=== PATIENT | male | born 1955 | race Caucasian/White ===

== ENCOUNTER 2016-12-22 01:54 | Inpatient (IN) | payer OTHER ==
--- NOTE | ~2016-12-22 | CO ---
Unit #: [id number] #: [id number] Patient: CINTHIA BENSON [id number] [facility] [address] [place] [address] [id number] MR#: [id number] NAME: CINTHIA BENSON. ROOM: [facility] Age: 61 Sex: M Admission Date: 12/22/2016 : 1955 Attending Physician: Suresh Khoury M.D. Primary Care Physician: Sonya Merino M.D. Consultation Date: 12/22/2016 CONSULTATION REPORT RITA Kirk is a 61-year-old with diabetes mellitus. He is admitted on no diabetic medications. We have been asked to assess and give recommendations. He has been on Glucophage 500 mg p.o. b.i.d. in the past; however, at time of admission creatinine was 1.8. PLAN Plan will be to start him on Levemir 15 units subcu q.h.s. Monitor Accu-Cheks a.c. and h.s. and provide sliding scale. Dictated by... Tana Gamble P.A.-C. for Shasta Norwood/elzbieta TD: 12/24/2016 02:15 JOB #: [id number] CONSULTATION REPORT Page 1 of 1 X Tana Gamble CONSULTATION REPORT
--- NOTE | ~2016-12-22 | HP ---
Unit #: [id number] #: [id number] Patient: REAGAN BENSON [id number] [facility] [address] [place] [address] [id number] MR#: [id number] NAME: REAGAN BENSON. ROOM: [facility] Age: 61 Sex: M Admission Date: 12/22/2016 : 1955 Attending Physician: Suresh Khoury M.D. Admitting Physician: Suresh Khoury M.D. Primary Care Physician: Sonya Merino M.D. HISTORY AND PHYSICAL HISTORY OF PRESENT ILLNESS Reagan is a 61 year old, admitted to [address] [place] [address], because of his continued abuse of alcohol. He is detoxing. PAST MEDICAL HISTORY 1. Long history of alcohol abuse. 2. Diabetes mellitus. 3. Peripheral neuropathy. PAST SURGICAL HISTORY Nothing reported. ALLERGIES No known drug allergies. SOCIAL HISTORY He does not smoke, drinks up to a case of beer on a daily basis and he has a history of heroin use. FAMILY HISTORY Medically noncontributory. REVIEW OF SYSTEMS CONSTITUTIONAL: No fever or chills. HEENT: Denies any sore throat, ear pain or runny nose. CARDIOVASCULAR: Denies chest pain, irregular heart rhythm or palpitations. CHEST: Denies shortness of breath or cough. No hemoptysis. GASTROINTESTINAL: Denies nausea, vomiting, diarrhea or chronic constipation. ENDOCRINE: Denies history of increased thirst or urination. No recent significant weight loss or gain. GENITOURINARY: Denies dysuria, frequency, or hematuria. SKIN: Denies any rashes. HEMATOLOGIC: Denies history of increased bleeding or bruising. MUSCULOSKELETAL: Denies any hot, swollen joints. No generalized muscle pain. NEUROLOGIC: Denies problems with vision or speech. No frequent, severe headaches. No numbness, tingling or weakness in any extremities. Denies loss of bladder or bowel control. CURRENT MEDICATIONS Detox protocol Unit #: [id number] #: [id number] Patient: REAGAN BENSON PHYSICAL EXAMINATION GENERAL: Alert, well-nourished, no apparent distress. VITAL SIGNS: Blood pressure 140/72, heart rate 80, respirations 16, and temperature 98.6. WEIGHT: 215 pounds. HEIGHT: 6 feet 0 inches. SKIN: Warm and dry without rash or lesion. HEENT: Normocephalic. TMs not viewed. Oral and nasal passages clear. Conjunctivae clear. PERRLA. EOMs intact. NECK: Supple without lymphadenopathy or thyromegaly. HEART: Regular rate and rhythm without murmur. LUNGS: Clear. ABDOMEN: Soft, nontender. : Not done. EXTREMITIES: No evidence of cyanosis, clubbing or edema. Moves all without focal deficit. NEUROLOGICAL: Grossly within normal limits. Cranial Nerves: II: Visual benson are intact. III, IV AND : Extraocular movements are intact. Pupils are equal, round and reactive to light. V: Facial sensation is grossly normal. VII: Facial movements and expression are normal. VIII: Auditory acuity grossly intact. IX, X: Uvula is midline. Phonation is normal. XI: Patient shrugs shoulders and turns head normally. XII: Tongue protrudes in the midline. Sensory and Motor Function: Sensory and motor sensation is grossly normal. Motor: moves all extremities well. Coordination: Gait is normal. Deep Tendon Reflexes: Intact. IMPRESSION Psychiatric admission. RECOMMENDATIONS Psychiatric, per psychiatrist. MEDICAL I see no contraindications to participating in facility's activities. MEDICAL PROGNOSIS Good. MEDICAL CONDITION Stable. Dictated by... Tana Gamble PRoxanaALillie. for Shasta Norwood/kenny TD: 12/23/2016 12:10 JOB #: [id number] Unit #: [id number] #: [id number] Patient: REAGAN BENSON HISTORY AND PHYSICAL Page 1 of 1 X Tana Gamble HISTORY AND PHYSICAL
--- NOTE | ~2016-12-22 | DS ---
Unit #: [id number] #: [id number] Patient: CINTHIA BENSON [id number] [facility] [address] [place] [address] [id number] MR#: [id number] NAME: CINTHIA BENSON. ROOM: [facility] Age: 61 Sex: M Admission Date: 12/22/2016 : 1955 Discharge Date: 12/24/2016 Attending Physician: Suresh Khoury M.D. Primary Care Physician: Sonya Merino M.D. DISCHARGE SUMMARY REASON FOR ADMISSION The patient is a 61-year-old white male, admitted on 12/22/2016 complaining of ongoing alcohol use and some depressed mood. HOSPITAL COURSE The patient was admitted to the [address] [place] [address] unit and placed on suicide precautions. His detox was uneventful and the patient did press for discharge on 12/23/2016, but because of his lack of support outside the hospital as well as suicidal threats made at the time of admission, he was observed for another 24 hours. By 12/24/2016, the patient again denied suicidal ideation. He had made arrangements to stay with his sister following discharge and requested discharge and it was so ordered. FINAL DIAGNOSES Alcohol use disorder, dysthymic disorder, diabetes mellitus. DISCHARGE MEDICATIONS The patient is discharged on the following medications: Gabapentin 800 mg q.6 hours for neuropathic pain, ibuprofen 600 mg q.6 hours p.r.n. pain, Levemir 15 units at bedtime for diabetic management, and NovoLog sliding scale for diabetic management. DISCHARGE INSTRUCTIONS No dietary or physical restrictions were placed upon the patient at the time of discharge. FOLLOWUP Followup will take place through the auspices of community mental health resources. PROGNOSIS The patient's prognosis is fair. Dictated by... Suresh Khoury M.D. CB/elzbieta TD: 12/24/2016 18:46 JOB #: [id number] Unit #: [id number] #: [id number] Patient: CINTHIA BENSON DISCHARGE SUMMARY Page 1 of 1 X Suresh Khoury MD DISCHARGE SUMMARY
--- NOTE | ~2016-12-22 | PA ---
Unit #: [id number] #: [id number] Patient: CINTHIA BENSON [id number] [facility] [address] [place] [address] [id number] MR#: [id number] NAME: CINTHIA BENSON. ROOM: [facility] Age: 61 Sex: M Admission Date: 12/22/2016 : 1955 Date of Assessment: 12/22/2016 Attending Physician: Suresh Khoury M.D. Admitting Physician: Suresh Khoury M.D. Primary Care Physician: Sonya Merino M.D. PSYCHIATRIC ASSESSMENT IDENTIFYING INFORMATION The patient is a 61-year-old white male admitted to the [address] [place] [address] for alcohol abuse. CHIEF COMPLAINT None given. INFORMANT(S) Chart. Patient unable to be aroused for interview. HISTORY OF PRESENT ILLNESS The patient is a 61-year-old white male reporting a history of increasing alcohol use. The patient's son had reported that the patient has been voicing some suicidal ideation secondary to his feeling as though he is a burden to his children. The patient is presently homeless and . He has been living on a fixed disability income. The patient has reported decline in activities of daily living. He does report suicide attempt by means of apparent overdose in September of this year but apparently does not use heroin regularly. PAST PSYCHIATRIC HISTORY The patient reports no prior history of chemical dependence or other psychiatric treatment. PAST MEDICAL HISTORY Significant for history of diabetes mellitus. MEDICATION Neurontin. ALLERGIES None. FAMILY HISTORY Noncontributory. SOCIAL HISTORY The patient is presently homeless. He reports substance use as noted previously. His 19.5 years ago. MENTAL STATUS EXAM Examination at this time reveals the patient to be a soundly sleeping white male who cannot be aroused for interview. Unit #: [id number] #: [id number] Patient: CINTHIA BENSON ASSETS AND LIABILITIES The patient's assets are to be assessed. Liabilities: Homelessness, lack of resources. DIAGNOSTIC IMPRESSION 1. Alcohol use disorder. 2. Diabetes mellitus. TREATMENT PLAN The patient remains hospitalized for safety and stabilization. Routine detoxification protocol for alcohol has been initiated. The patient will participate in appropriate order of milieu activities, and suicide precautions are in place. ESTIMATED LENGTH OF STAY 3 to 5 days. The followup will take place through the auspices of community mental health resources. Dictated by... Shatsa Ochoa TD: 12/23/2016 06:47 JOB #: [id number] PSYCHIATRIC ASSESSMENT Page 1 of 1 X Suresh Khoury MD X PSYCHIATRIC ASSESSMENT
--- NOTE | ~2016-12-22 | PN ---
Unit #: [id number] #: [id number] Patient: CINTHIA BENSON [id number] [facility] [address] [place] [address] [id number] MR#: [id number] NAME: CINTHIA BENSON ROOM: [facility] Age: 61 Sex: M Admission Date: 12/22/2016 : 1955 Attending Physician: Suresh Khoury M.D. Admitting Physician: Suresh Khoury M.D. Primary Care Physician: Shasta Whiting PROGRESS NOTES DATE 12/23/2016 DISCUSSION The patient is today requesting discharge from the hospital; however, given his threats of suicide at the time of admission as well as his homeless status, lack of support, and ongoing alcohol withdrawal symptoms, I will not order that and will, in fact, place the patient on a 72-hour hold if he persists in his wish to leave the hospital. Dictated by... Suresh Khoury M.D. CB/bonny TD: 12/23/2016 14:02 JOB #: [id number] [facility] PROGRESS NOTES Page 1 of 1 X Suresh Khoury MD X PROGRESS NOTE
[~2016-12-22 01:54] MED LIST: GABAPENTIN800 MG; NORCO 5/325 TAB1 TAB PO; VICODIN 5/500 T1 TAB PO
[2016-12-22 09:53] LABS: BASOPHIL# 0.1 X10e3 (0-0.3); BASOPHIL% 0.9 % (0-2.5); EOSINOPHIL# 0.3 X10e3 (0-0.7); HEMATOCRIT 34.9 % (38.0-50.0); HEMOGLOBIN 11.8 gm/dL (13.0-16.0); LYMPHOCYTE# 1.9 X10e3 (1.0-3.5); LYMPHOCYTE% 28.3 % (17.0-45.0); MEAN CELL VOLUME 91.2 FL (83-96); MEAN CORPUSCULAR HEMOGLOBIN 30.8 PG (28-34); MEAN CORPUSCULAR HGB CONC 33.8 g/dL (30-36); MEAN PLATELET VOLUME 8.2 FL (6.5-11.5); MONOCYTE# 0.7 X10e3 (0-1.0); MONOCYTE% 10.3 % (3.0-12.0); NEUTROPHIL# 3.9 X10e3 (1.5-7.1); NEUTROPHIL% 56.5 % (40-75); PLATELET COUNT 195 X10e3 (140-420); RED BLOOD COUNT 3.82 X10e (3.90-5.60); WHITE BLOOD COUNT 6.8 X10e3 (4.0-10.5)
[2016-12-22 09:57] LABS: DIFF IND NO
[2016-12-22 10:06] LABS: ALBUMIN SERUM 3.5 g/dL (3.5-5.0); BILIRUBIN,TOTAL 0.5 mg/dL (0.2-2.0); BUN/CREATININE RATIO 9.44; CALCIUM SERUM 8.5 mg/dL (8.4-10.2); CREATININE SERUM 1.8 mg/dL (0.6-1.4); POTASSIUM 3.9 mmol/L (3.5-5.1); PROTEIN TOTAL SERUM 7.2 g/dL (6.0-8.3)
[2016-12-23 09:52] LABS: URINE APPEARANCE CLEAR; URINE BILIRUBIN NEG (NEG); URINE BLOOD 1+ (NEG); URINE COLOR DK YELLOW; URINE GLUCOSE >1000 MG/DL (NEG); URINE KETONE NEG (NEG); URINE LEUKOCYTE ESTERASE NEG (NEG); URINE NITRATE NEG (NEG); URINE PROTEIN NEG (NEG); URINE SPECIFIC GRAVITY 1.016 (1.003-1.035); URINE UROBILINOGEN 0.2 MG/DL (NEG)
[2016-12-23 09:56] LABS: URINE BACTERIA AUWI NEG (NEGATIVE); URINE SQUAMOUS EPITHELIAL CELL NONE SEEN /[HPF]
[2016-12-23 10:53] LABS: AMPHETAMINE NEG (NEG); BARBITURATES NEG (NEG); BENZODIAZEPINES NEG (NEG); COCAINE NEG (NEG); MARIJUANA NEG (NEG); OPIATES NEG (NEG); TRICYCLIC ANTIDEPRESSANTS NEG (NEG); U METHADONE NEG (NEG)
[2017-05-24] MEDS ORDERED: GABAPENTIN800 MG PO (13:56)
[2017-05-24] MEDS ORDERED: NOVOLOG100 UNIT/1 (13:57)
[2017-05-28] MEDS ORDERED: CLEOCIN HCL300 M1 (15:36)
[2017-05-28] MEDS ORDERED: LEVAQUIN250 MG DOB (15:43)
[2017-05-28] MEDS ORDERED: NOVALIN 70/30 SUBQ (15:45)
[2017-05-28] MEDS ORDERED: TRAMADOL HCL50 M1 PO (15:46)
== END 2016-12-24 15:05 | disposition home or self-care (01) | DRG 897 ==
LOC: P2S 01:54
PROVIDERS: Specialist
PROC: HZ2ZZZZ Detoxification Services for Substance Abuse Treatment (ICD-10-PCS; principal; 2016-12-22)
DX: F10.10 Alcohol abuse, uncomplicated (principal); E11.42 Type 2 diabetes mellitus with diabetic polyneuropathy; Z79.4 Long term (current) use of insulin; F34.1 Dysthymic disorder
CPT/HCPCS: 80053; 80307; 81003; 82947; 85025; 86592

== ENCOUNTER 2017-01-18 23:17 | Emergency (ER) | payer OTHER ==
[2017-05-24] MEDS ORDERED: GABAPENTIN800 MG PO (13:56)
[2017-05-24] MEDS ORDERED: NOVOLOG100 UNIT/1 (13:57)
[2017-05-28] MEDS ORDERED: CLEOCIN HCL300 M1 (15:36)
[2017-05-28] MEDS ORDERED: LEVAQUIN250 MG DOB (15:43)
[2017-05-28] MEDS ORDERED: NOVALIN 70/30 SUBQ (15:45)
[2017-05-28] MEDS ORDERED: TRAMADOL HCL50 M1 PO (15:46)
== END 2017-01-19 01:40 | disposition home or self-care (01) ==
LOC: CED 23:17
DX: T40.1X1A Poisoning by heroin, accidental (unintentional), initial encounter (principal); E11.9 Type 2 diabetes mellitus without complications
CPT/HCPCS: 99282